=== PATIENT | female | born 1950 | race Caucasian/White ===

== ENCOUNTER 2019-09-07 12:14 | Outpatient (CLI) | payer BC ==
[2019-09-07] MEDS ORDERED: SKIN PO (13:23)
[2019-09-07] MEDS ORDERED: [UNRECOGNIZED DRUG - OTHER] PO (13:23)
[2019-09-07] MEDS ORDERED: VITS1TAB2 PO (13:23)
[2019-09-07] MEDS ORDERED: multivitamin PO (13:23)
[2019-09-07] MEDS ORDERED: omega 3 PO (13:23)
[2019-09-07] MEDS ORDERED: tumeric PO (13:23)
[2019-09-07 13:25] LABS: BASOPHILS % (AUTO) 2 % (0-1); EOSINOPHILS # (AUTO) 0.08 x10^3/uL (0-0.4); EOSINOPHILS % (AUTO) 1 % (1-7); LYMPHOCYTES % (AUTO) 24 % (22-44); MD NO; MEAN CORPUSCULAR HEMOGLOBIN 30.9 pg (27.0-34.8); MEAN CORPUSCULAR HGB CONC 33.2 g/dL (32.4-35.8); MEAN CORPUSCULAR VOLUME 93.1 fL (80-100); MEAN PLATELET VOLUME 8.9 fL (7.4-10.4); MONOCYTES % (AUTO) 6 % (2-9); NEUTROPHILS # (AUTO) 4.18 x10^3/uL (1.8-6.8); NEUTROPHILS % (AUTO) 67 % (42-75); PLATELET COUNT 176 x10^3/uL (130-400); RED BLOOD COUNT 4.62 x10^6/uL (3.82-5.3); RED CELL DISTRIBUTION WIDTH 12.8 % (9.6-15.2)
[2019-09-07 13:38] LABS: ANION GAP 5 mmol/L (5-15); CALCIUM 9.1 mg/dL (8.5-10.1); CHLORIDE 111 mmol/L (98-107); CREATININE 0.59 mg/dL (0.55-1.02)
== END 2019-09-07 23:59 | disposition home or self-care (01) ==
LOC: STAR 12:14
PROVIDERS: ATTEND Obstetrics & Gynecology
DX: Z01.818 Encounter for other preprocedural examination (principal); N81.2 Incomplete uterovaginal prolapse; Z88.0 Allergy status to penicillin
CPT/HCPCS: 36415; 71046; 80048; 84702; 85025; 93005

== ENCOUNTER 2019-09-22 09:42 | Day surgery (SDC) | payer BC ==
[~2019-09-22] VITALS: Ht 162.6 cm; Wt 50.0 kg
[~2019-09-22 09:42] MED LIST: SKIN PO; VITS1TAB2 PO; [UNRECOGNIZED DRUG - OTHER] PO; multivitamin PO; omega 3 PO; tumeric PO
[2019-09-22 10:39] VITALS: BP 157/88
[2019-09-22] MEDS ORDERED: LACTATED RINGERS 1,000 ML IV ONE (10:42)
[2019-09-22] MEDS ORDERED: BUPIVACAINE/PF-EPI 0.25% 1:200K ONE (10:52)
[2019-09-22] MEDS ORDERED: BUPIVACAINE/PF 0.5% ONE (10:52)
[2019-09-22] MEDS ORDERED: EPINEPHRINE 1 MG/ML, 1ML ONE (10:52)
[2019-09-22] MEDS ORDERED: FLUORESCEIN SODIUM 500 MG/5 ML ONE (11:00)
[2019-09-22] MEDS ORDERED: ACETAMINOPHEN 500 MG TABLET PO STA (11:08)
[2019-09-22] MEDS ORDERED: DIAZEPAM 5 MG TABLET PO STA (11:08)
[2019-09-22] MEDS ORDERED: SCOPOLAMINE PATCH, 1.5MG PATCH.TD72 TD STA (11:13)
[2019-09-22] MEDS ORDERED: SCOPOLAMINE PATCH, 1.5MG PATCH.TD72 TD ONE (11:14)
[2019-09-22] MEDS ORDERED: FENTANYL PF 250 MCG/5ML ONE (11:33)
[2019-09-22] MEDS ORDERED: MIDAZOLAM 1 MG/ML, 2ML ONE (11:34)
[2019-09-22] MEDS ORDERED: LIDOCAINE-MPF 2% ,5ML ONE (11:59)
[2019-09-22] MEDS ORDERED: HYDROmorphone 2 MG/ML, 1ML IVPush PRN (12:30)
[2019-09-22] MEDS ORDERED: LORazepam 2 MG/ML, 1ML IVPush PRN (12:30)
[2019-09-22] MEDS ORDERED: PROMETHAZINE 25 MG SUPP PR PRN (12:30)
[2019-09-22] MEDS ORDERED: ONDANSETRON 2MG/ML, 2ML IV PRN (12:30)
[2019-09-22] MEDS ORDERED: ONDANSETRON ODT 8 MG PO PRN (12:30)
[2019-09-22] MEDS ORDERED: PROMETHAZINE 25 MG/ML, 1ML IV PRN (12:30)
[2019-09-22] MEDS ORDERED: OXYcodone 5 MG/5 ML ORAL.SOL UDC PO PRN (12:30)
[2019-09-22] MEDS ORDERED: FENTANYL PF 100 MCG/2ML IV PRN (12:30)
[2019-09-22] MEDS ORDERED: SUGAMMADEX 200 MG/2 ML IVPush ONE (12:53)
[2019-09-22] MEDS ORDERED: DEXAMETHASONE 4 MG/ML, 1ML ONE (12:53)
[2019-09-22] MEDS ORDERED: PROPOFOL 10 MG/ML, 20ML ONE (12:53)
[2019-09-22] MEDS ORDERED: GLYCOPYRROLATE 0.2MG/1ML, 5ML ONE (12:53)
[2019-09-22] MEDS ORDERED: CEFAZOLIN 1,000 MG ONE (12:53)
[2019-09-22] MEDS ORDERED: ONDANSETRON 2MG/ML, 2ML ONE (12:53)
[2019-09-22] MEDS ORDERED: SUCCINYLCHOLINE 20 MG/ML, 10ML ONE (12:53)
[2019-09-22] MEDS ORDERED: ROCURONIUM 10MG/ML,5ML ONE (12:53)
[2019-09-22] MEDS ORDERED: NEOSTIGMINE 1 MG/ML, 10ML ONE (12:53)
== END 2019-09-22 17:25 | disposition home or self-care (01) ==
LOC: OUT 09:42
PROVIDERS: ATTEND Obstetrics & Gynecology
DX: N81.2 Incomplete uterovaginal prolapse (principal); C54.1 Malignant neoplasm of endometrium; Z88.0 Allergy status to penicillin; Z98.890 Other specified postprocedural states
CPT/HCPCS: 57260; 58262; 88307; J0690; J1100; J2250; J2405; J2704; J3010; J7120; J0171; J2710; J0330

== ENCOUNTER 2019-10-26 09:32 | Outpatient (CLI) | payer BC ==
[2019-10-26 09:55] LABS: BASOPHILS # (AUTO) 0.03 x10^3/uL (0-0.1); BASOPHILS % (AUTO) 1 % (0-1); EOSINOPHILS # (AUTO) 0.07 x10^3/uL (0-0.4); EOSINOPHILS % (AUTO) 1 % (1-7); LYMPHOCYTES # (AUTO) 1.24 x10^3/uL (1-3.4); LYMPHOCYTES % (AUTO) 23 % (22-44); MD NO; MEAN CORPUSCULAR HEMOGLOBIN 31.1 pg (27.0-34.8); MEAN CORPUSCULAR HGB CONC 33.7 g/dL (32.4-35.8); MEAN CORPUSCULAR VOLUME 92.3 fL (80-100); MEAN PLATELET VOLUME 9.1 fL (7.4-10.4); MONOCYTES # (AUTO) 0.28 x10^3/uL (0.2-0.8); MONOCYTES % (AUTO) 5 % (2-9); NEUTROPHILS # (AUTO) 3.75 x10^3/uL (1.8-6.8); NEUTROPHILS % (AUTO) 70 % (42-75); PLATELET COUNT 175 x10^3/uL (130-400); RED BLOOD COUNT 4.67 x10^6/uL (3.82-5.3); RED CELL DISTRIBUTION WIDTH 13.2 % (9.6-15.2)
[2019-10-26 09:58] LABS: ALBUMIN 4.1 g/dL (3.4-5.0); ANION GAP 8 mmol/L (5-15); CALCIUM 9.2 mg/dL (8.5-10.1); CHLORIDE 109 mmol/L (98-107)
[2019-10-26 10:01] LABS: ALANINE AMINOTRANSFERASE 28 U/L (12-78); ALKALINE PHOSPHATASE 96 U/L (45-117); BILIRUBIN,TOTAL 0.6 mg/dL (0.2-1.0); CREATININE 0.66 mg/dL (0.55-1.02); TOTAL PROTEIN 7.6 g/dL (6.4-8.2)
== END 2019-10-26 23:59 | disposition home or self-care (01) ==
LOC: LAB 09:32
PROVIDERS: ATTEND Obstetrics & Gynecology
DX: C54.1 Malignant neoplasm of endometrium (principal); N81.10 Cystocele, unspecified; N81.6 Rectocele
CPT/HCPCS: 36415; 80053; 85025; 86304

== ENCOUNTER 2019-11-02 10:13 | Outpatient (CLI) | payer BC ==
[2019-11-02] MEDS ORDERED: OMNIPAQUE 350 MG/ML, 100ML BOTTLE ONE (12:27)
== END 2019-11-02 23:59 | disposition home or self-care (01) ==
LOC: CFH 10:13
PROVIDERS: ATTEND Obstetrics & Gynecology
DX: C54.1 Malignant neoplasm of endometrium (principal); N81.10 Cystocele, unspecified; N81.6 Rectocele; J84.10 Pulmonary fibrosis, unspecified
CPT/HCPCS: 71260; 74177; Q9967

== ENCOUNTER 2019-12-15 10:54 | Outpatient (CLI) | payer BC ==
[2019-12-15 12:05] LABS: INTERNATIONAL NORMALIZED RATIO 0.96 (0.93-1.1); PROTHROMBIN TIME 10.2 Seconds (9.6-11.5)
[2019-12-15 12:07] LABS: BASOPHILS # (AUTO) 0.04 x10^3/uL (0-0.1); BASOPHILS % (AUTO) 1 % (0-1); EOSINOPHILS # (AUTO) 0.07 x10^3/uL (0-0.4); EOSINOPHILS % (AUTO) 1 % (1-7); LYMPHOCYTES # (AUTO) 1.72 x10^3/uL (1-3.4); LYMPHOCYTES % (AUTO) 30 % (22-44); MD NO; MEAN CORPUSCULAR HGB CONC 34.1 g/dL (32.4-35.8); MEAN CORPUSCULAR VOLUME 93.9 fL (80-100); MEAN PLATELET VOLUME 9.2 fL (7.4-10.4); MONOCYTES # (AUTO) 0.35 x10^3/uL (0.2-0.8); MONOCYTES % (AUTO) 6 % (2-9); NEUTROPHILS # (AUTO) 3.62 x10^3/uL (1.8-6.8); NEUTROPHILS % (AUTO) 62 % (42-75); PLATELET COUNT 171 x10^3/uL (130-400); RED BLOOD COUNT 4.67 x10^6/uL (3.82-5.3); RED CELL DISTRIBUTION WIDTH 13.6 % (9.6-15.2)
[2019-12-15 12:16] LABS: ALBUMIN 3.9 g/dL (3.4-5.0); ANION GAP 7 mmol/L (5-15); CHLORIDE 111 mmol/L (98-107)
[2019-12-15 12:20] LABS: ALANINE AMINOTRANSFERASE 37 U/L (12-78); ALKALINE PHOSPHATASE 98 U/L (45-117); BILIRUBIN,TOTAL 0.4 mg/dL (0.2-1.0); CREATININE 0.69 mg/dL (0.55-1.02); TOTAL PROTEIN 7.1 g/dL (6.4-8.2)
== END 2019-12-15 23:59 | disposition home or self-care (01) ==
LOC: STAR 10:54
PROVIDERS: ATTEND Obstetrics & Gynecology
DX: Z01.818 Encounter for other preprocedural examination (principal); C54.1 Malignant neoplasm of endometrium; N81.10 Cystocele, unspecified; N81.6 Rectocele
CPT/HCPCS: 36415; 80053; 85025; 85610; 85730; 86304; U0001

== ENCOUNTER 2019-12-20 05:30 | Day surgery (SDC) | payer BC ==
[~2019-12-20] VITALS: Ht 162.6 cm; Wt 49.8 kg
[2019-12-20] MEDS ORDERED: LACTATED RINGERS 1,000 ML IV SCH (06:40)
[2019-12-20 06:44] VITALS: BP 166/90
[2019-12-20] MEDS ORDERED: GLYCOPYRROLATE 0.2MG/1ML, 5ML ONE (06:44)
[2019-12-20] MEDS ORDERED: ONDANSETRON 2MG/ML, 2ML ONE ×2 (06:44→17:52)
[2019-12-20] MEDS ORDERED: MIDAZOLAM 1 MG/ML, 2ML ONE (06:44)
[2019-12-20] MEDS ORDERED: SUCCINYLCHOLINE 20 MG/ML, 10ML ONE (06:44)
[2019-12-20] MEDS ORDERED: FENTANYL PF 100 MCG/2ML ONE ×3 (06:44→13:01)
[2019-12-20] MEDS ORDERED: NEOSTIGMINE 1 MG/ML, 10ML ONE (06:44)
[2019-12-20] MEDS ORDERED: DEXAMETHASONE 4 MG/ML, 1ML ONE (06:44)
[2019-12-20] MEDS ORDERED: CEFAZOLIN 1,000 MG ONE (06:44)
[2019-12-20] MEDS ORDERED: ROCURONIUM 10MG/ML,5ML ONE (06:44)
[2019-12-20] MEDS ORDERED: PROPOFOL 10 MG/ML, 20ML ONE (06:44)
[2019-12-20] MEDS ORDERED: BUPIVACAINE/PF-EPI 0.25% 1:200K ONE ×2 (06:50→11:36)
[2019-12-20] MEDS ORDERED: INDOCYANINE GREEN 25 MG VIAL ONE (06:50)
[2019-12-20] MEDS ORDERED: HEPARIN 1,000 UNITS/ML, 10ML ONE (06:50)
[2019-12-20] MEDS ORDERED: SCOPOLAMINE 1MG PATCH TD SCH (07:00)
[2019-12-20] MEDS ORDERED: CHLORHEXIDINE 15 ML UDC MM ONE (07:00)
[2019-12-20] MEDS ORDERED: LIDOCAINE-MPF 1%, 2ML INFIL ONE (07:00)
[2019-12-20] MEDS ORDERED: CEFOTETAN PMX 2GM/50ML 50 ML IV ONE (07:00)
[2019-12-20] MEDS ORDERED: CEFOTETAN PMX 2GM/50ML 50 ML ONE (07:10)
[2019-12-20] MEDS ORDERED: SCOPOLAMINE 1MG PATCH TD ONE (07:11)
[2019-12-20] MEDS ORDERED: EPHEDRINE 50 MG/ML, 1ML ONE (07:38)
[2019-12-20] MEDS ORDERED: METOPROLOL 1 MG/ML, 5ML ONE (07:38)
[2019-12-20] MEDS ORDERED: CEFOTETAN 2 GM ONE (07:38)
[2019-12-20] MEDS ORDERED: SUGAMMADEX 200 MG/2 ML IVPush ONE (07:38)
[2019-12-20] MEDS ORDERED: OXYcodone 5 MG/5 ML ORAL.SOL UDC PO PRN (08:30)
[2019-12-20] MEDS ORDERED: MORPHINE SULFATE 4 MG/ML, 1ML IVPush PRN (08:30)
[2019-12-20] MEDS ORDERED: PROMETHAZINE 25 MG/ML, 1ML IV PRN (08:30)
[2019-12-20] MEDS ORDERED: ACETAMINOPHEN 325 MG TABLET PO PRN (08:30)
[2019-12-20] MEDS ORDERED: MEPERIDINE/PF 25MG/ML,1ML IVPush PRN (08:30)
[2019-12-20] MEDS: FENTANYL PF 100 MCG/2ML IV PRN ×2 (13:03→13:16)
[2019-12-20] MEDS ORDERED: ONDANSETRON 2MG/ML, 2ML IVPush PRN (18:00)
[2019-12-20] MEDS ORDERED: OXYcodone 5 MG/5 ML ORAL.SOL UDC ONE (18:03)
[2019-12-20] MEDS ORDERED: ACETAMINOPHEN 325 MG TABLET ONE (18:03)
== END 2019-12-20 19:20 | disposition home or self-care (01) ==
LOC: OUT 05:30
PROVIDERS: ATTEND Obstetrics & Gynecology
DX: C54.1 Malignant neoplasm of endometrium (principal); N99.71 Accidental puncture and laceration of a genitourinary system organ or structure during a genitourinary system procedure; N83.292 Other ovarian cyst, left side; N73.6 Female pelvic peritoneal adhesions (postinfective); Z79.899 Other long term (current) drug therapy; Z88.0 Allergy status to penicillin; Z90.710 Acquired absence of both cervix and uterus; Z90.79 Acquired absence of other genital organ(s); Z98.890 Other specified postprocedural states; Z82.49 Family history of ischemic heart disease and other diseases of the circulatory system; Z80.1 Family history of malignant neoplasm of trachea, bronchus and lung; Z83.511 Family history of glaucoma; Y83.8 Other surgical procedures as the cause of abnormal reaction of the patient, or of later complication, without mention of misadventure at the time of the procedure
CPT/HCPCS: 36415; 38572; 58661; 74018; 86850; 86870; 86900; 86902; 86922; 88112; 88305; 88307; 88341; 88342; J0330; J1100; J1644; J2250; J2405; J2704; J2710; J3010; J3490; J7120; S2900; 86923; J0690

== ENCOUNTER → 2020-01-18 | Outpatient (CLI) | payer BC ==
[2020-01-18 11:10] LABS: BASOPHILS # (AUTO) 0.03 x10^3/uL (0-0.1); BASOPHILS % (AUTO) 1 % (0-1); EOSINOPHILS # (AUTO) 0.14 x10^3/uL (0-0.4); EOSINOPHILS % (AUTO) 2 % (1-7); LYMPHOCYTES # (AUTO) 1.26 x10^3/uL (1-3.4); LYMPHOCYTES % (AUTO) 20 % (22-44); MD NO; MEAN CORPUSCULAR HEMOGLOBIN 31.4 pg (27.0-34.8); MEAN CORPUSCULAR HGB CONC 33.2 g/dL (32.4-35.8); MEAN CORPUSCULAR VOLUME 94.7 fL (80-100); MONOCYTES # (AUTO) 0.48 x10^3/uL (0.2-0.8); MONOCYTES % (AUTO) 8 % (2-9); NEUTROPHILS % (AUTO) 69 % (42-75); PLATELET COUNT 191 x10^3/uL (130-400); RED BLOOD COUNT 4.48 x10^6/uL (3.82-5.3); RED CELL DISTRIBUTION WIDTH 13.7 % (9.6-15.2)
[2020-01-18 11:11] LABS: ALANINE AMINOTRANSFERASE 19 U/L (12-78); ALBUMIN 3.8 g/dL (3.4-5.0); ANION GAP 8 mmol/L (5-15); CHLORIDE 108 mmol/L (98-107); CREATININE 0.66 mg/dL (0.55-1.02)
[2020-01-18 11:13] LABS: ALKALINE PHOSPHATASE 83 U/L (45-117); BILIRUBIN,TOTAL 0.7 mg/dL (0.2-1.0); TOTAL PROTEIN 7.5 g/dL (6.4-8.2)
== END | disposition home or self-care (01) ==
LOC: LAB 10:39
PROVIDERS: ATTEND Obstetrics & Gynecology
DX: C54.1 Malignant neoplasm of endometrium (principal); N81.10 Cystocele, unspecified; N81.6 Rectocele; E61.2 Magnesium deficiency
CPT/HCPCS: 36415; 80053; 83735; 85025; 86304

== ENCOUNTER → 2020-02-02 | Outpatient (CLI) | payer BC ==
[2020-02-02 11:55] LABS: MEAN CORPUSCULAR HEMOGLOBIN 31.5 pg (27.0-34.8); MEAN CORPUSCULAR HGB CONC 33.5 g/dL (32.4-35.8); MEAN CORPUSCULAR VOLUME 94.1 fL (80-100); MEAN PLATELET VOLUME 8.8 fL (7.4-10.4); PLATELET COUNT 164 x10^3/uL (130-400); RED CELL DISTRIBUTION WIDTH 12.4 % (9.6-15.2)
[2020-02-02 12:37] LABS: MD YES
[2020-02-02 12:41] LABS: <PLATELET ESTIMATE> ADEQUATE; <PLT MORPHOLOGY> NORMAL PLT MORPH; <RBC MORPHOLOGY> NORMAL; BAND#(MANUAL) 1.03 x10^3/uL; BANDS%(MANUAL) 9 % (0-7); EOS#(MANUAL) 0.23 x10^3/uL (0.0-0.4); EOS% (MANUAL) 2 % (1-7); LYMPH#(MANUAL) 2.74 x10^3/uL (1-3.4); LYMPHS% (MANUAL) 24 % (22-44); METAMYELOCYTES# (MANUAL) 0.68 x10^3/uL (0-0); METAMYELOCYTES% (MANUAL) 6 % (0-1); MONOS#(MANUAL) 1.25 x10^3/uL (0.3-2.7); MONOS% (MANUAL) 11 % (2-9); MYELOCYTES# (MANUAL) 0.34 x10^3/uL (0-0); MYELOCYTES% (MANUAL) 3 % (0-0); SEG#(MANUAL) 5.13 x10^3/uL (1.8-6.8); SEGS% (MANUAL) 45 % (42-75); TOXIC GRAN 1+
== END | disposition home or self-care (01) ==
LOC: LAB 11:42
PROVIDERS: ATTEND Obstetrics & Gynecology
DX: Z51.11 Encounter for antineoplastic chemotherapy (principal); C54.1 Malignant neoplasm of endometrium; N81.10 Cystocele, unspecified; N81.6 Rectocele; R33.9 Retention of urine, unspecified; E61.2 Magnesium deficiency; D70.1 Agranulocytosis secondary to cancer chemotherapy
CPT/HCPCS: 36415; 85025

== ENCOUNTER → 2020-02-09 | Outpatient (CLI) | payer BC ==
[2020-02-09 11:27] LABS: BASOPHILS # (AUTO) 0.04 x10^3/uL (0-0.1); BASOPHILS % (AUTO) 1 % (0-1); EOSINOPHILS # (AUTO) 0.09 x10^3/uL (0-0.4); EOSINOPHILS % (AUTO) 1 % (1-7); LYMPHOCYTES # (AUTO) 1.48 x10^3/uL (1-3.4); LYMPHOCYTES % (AUTO) 15 % (22-44); MD NO; MEAN CORPUSCULAR HEMOGLOBIN 31.6 pg (27.0-34.8); MEAN CORPUSCULAR HGB CONC 33.8 g/dL (32.4-35.8); MEAN CORPUSCULAR VOLUME 93.6 fL (80-100); MEAN PLATELET VOLUME 8.6 fL (7.4-10.4); MONOCYTES # (AUTO) 0.28 x10^3/uL (0.2-0.8); MONOCYTES % (AUTO) 3 % (2-9); NEUTROPHILS # (AUTO) 7.69 x10^3/uL (1.8-6.8); NEUTROPHILS % (AUTO) 80 % (42-75); PLATELET COUNT 126 x10^3/uL (130-400); RED BLOOD COUNT 4.02 x10^6/uL (3.82-5.3); RED CELL DISTRIBUTION WIDTH 12.9 % (9.6-15.2)
== END | disposition home or self-care (01) ==
LOC: LAB 11:04
PROVIDERS: ATTEND Obstetrics & Gynecology
DX: Z51.11 Encounter for antineoplastic chemotherapy (principal); C54.1 Malignant neoplasm of endometrium; D70.1 Agranulocytosis secondary to cancer chemotherapy; N81.10 Cystocele, unspecified; N81.6 Rectocele; R33.9 Retention of urine, unspecified; E61.2 Magnesium deficiency
CPT/HCPCS: 36415; 85025

== ENCOUNTER → 2020-02-15 | Outpatient (CLI) | payer BC ==
[2020-02-15 09:58] LABS: ALANINE AMINOTRANSFERASE 31 U/L (12-78); ALBUMIN 3.5 g/dL (3.4-5.0); ANION GAP 7 mmol/L (5-15); CALCIUM 8.5 mg/dL (8.5-10.1); CHLORIDE 110 mmol/L (98-107)
[2020-02-15 10:00] LABS: ALKALINE PHOSPHATASE 95 U/L (45-117); BILIRUBIN,TOTAL 0.4 mg/dL (0.2-1.0); TOTAL PROTEIN 6.9 g/dL (6.4-8.2)
[2020-02-15 10:02] LABS: BASOPHILS # (AUTO) 0.01 x10^3/uL (0-0.1); BASOPHILS % (AUTO) 0 % (0-1); EOSINOPHILS # (AUTO) 0.01 x10^3/uL (0-0.4); EOSINOPHILS % (AUTO) 0 % (1-7); LYMPHOCYTES % (AUTO) 16 % (22-44); MD NO; MEAN CORPUSCULAR HEMOGLOBIN 31.2 pg (27.0-34.8); MEAN CORPUSCULAR VOLUME 94.8 fL (80-100); MEAN PLATELET VOLUME 7.9 fL (7.4-10.4); MONOCYTES # (AUTO) 0.34 x10^3/uL (0.2-0.8); MONOCYTES % (AUTO) 7 % (2-9); NEUTROPHILS # (AUTO) 3.97 x10^3/uL (1.8-6.8); NEUTROPHILS % (AUTO) 77 % (42-75); PLATELET COUNT 191 x10^3/uL (130-400); RED BLOOD COUNT 4.03 x10^6/uL (3.82-5.3)
== END | disposition home or self-care (01) ==
LOC: LAB 09:32
PROVIDERS: ATTEND Obstetrics & Gynecology
DX: Z51.11 Encounter for antineoplastic chemotherapy (principal); C54.1 Malignant neoplasm of endometrium; N81.10 Cystocele, unspecified; N81.6 Rectocele; R33.9 Retention of urine, unspecified; E61.2 Magnesium deficiency; D70.1 Agranulocytosis secondary to cancer chemotherapy
CPT/HCPCS: 36415; 80053; 83735; 85025; 86304

== ENCOUNTER → 2020-03-06 | Outpatient (CLI) | payer BC ==
[2020-03-06 12:36] LABS: ALANINE AMINOTRANSFERASE 37 U/L (12-78); ALBUMIN 3.7 g/dL (3.4-5.0); ANION GAP 5 mmol/L (5-15); CALCIUM 8.9 mg/dL (8.5-10.1); CHLORIDE 110 mmol/L (98-107); CREATININE 0.53 mg/dL (0.55-1.02)
[2020-03-06 12:38] LABS: ALKALINE PHOSPHATASE 97 U/L (45-117); BILIRUBIN,TOTAL 0.5 mg/dL (0.2-1.0); TOTAL PROTEIN 6.9 g/dL (6.4-8.2)
[2020-03-06 12:54] LABS: BASOPHILS # (AUTO) 0.03 x10^3/uL (0-0.1); BASOPHILS % (AUTO) 0 % (0-1); EOSINOPHILS # (AUTO) 0.01 x10^3/uL (0-0.4); EOSINOPHILS % (AUTO) 0 % (1-7); LYMPHOCYTES # (AUTO) 1.09 x10^3/uL (1-3.4); LYMPHOCYTES % (AUTO) 18 % (22-44); MD NO; MEAN CORPUSCULAR HGB CONC 33.2 g/dL (32.4-35.8); MEAN CORPUSCULAR VOLUME 96.3 fL (80-100); MEAN PLATELET VOLUME 8.5 fL (7.4-10.4); MONOCYTES # (AUTO) 0.33 x10^3/uL (0.2-0.8); MONOCYTES % (AUTO) 5 % (2-9); NEUTROPHILS # (AUTO) 4.77 x10^3/uL (1.8-6.8); NEUTROPHILS % (AUTO) 77 % (42-75); PLATELET COUNT 231 x10^3/uL (130-400); RED BLOOD COUNT 3.64 x10^6/uL (3.82-5.3); RED CELL DISTRIBUTION WIDTH 15.1 % (9.6-15.2)
== END | disposition home or self-care (01) ==
LOC: LAB 11:59
PROVIDERS: ATTEND Obstetrics & Gynecology
DX: Z51.11 Encounter for antineoplastic chemotherapy (principal); C54.1 Malignant neoplasm of endometrium; N81.10 Cystocele, unspecified; N81.6 Rectocele; R33.9 Retention of urine, unspecified; E61.2 Magnesium deficiency; D70.1 Agranulocytosis secondary to cancer chemotherapy
CPT/HCPCS: 36415; 80053; 83735; 85025; 86304

== ENCOUNTER → 2020-03-15 | Outpatient (CLI) | payer BC ==
[2020-03-15 10:45] LABS: MEAN CORPUSCULAR HEMOGLOBIN 32.5 pg (27.0-34.8); MEAN CORPUSCULAR HGB CONC 33.5 g/dL (32.4-35.8); MEAN CORPUSCULAR VOLUME 97.1 fL (80-100); MEAN PLATELET VOLUME 8.4 fL (7.4-10.4); PLATELET COUNT 184 x10^3/uL (130-400); RED BLOOD COUNT 3.43 x10^6/uL (3.82-5.3); RED CELL DISTRIBUTION WIDTH 15.4 % (9.6-15.2)
[2020-03-15 11:41] LABS: MD YES
[2020-03-15 11:43] LABS: ANISOCYTOSIS 1+; BAND#(MANUAL) 2.44 x10^3/uL; BANDS%(MANUAL) 13 % (0-7); EOS#(MANUAL) 0.19 x10^3/uL (0.0-0.4); EOS% (MANUAL) 1 % (1-7); LYMPHS% (MANUAL) 8 % (22-44); METAMYELOCYTES# (MANUAL) 0.94 x10^3/uL (0-0); METAMYELOCYTES% (MANUAL) 5 % (0-1); MONOS#(MANUAL) 1.13 x10^3/uL (0.3-2.7); MONOS% (MANUAL) 6 % (2-9); MYELOCYTES# (MANUAL) 0.94 x10^3/uL (0-0); MYELOCYTES% (MANUAL) 5 % (0-0); SEG#(MANUAL) 11.66 x10^3/uL (1.8-6.8); SEGS% (MANUAL) 62 % (42-75)
[2020-03-15 11:44] LABS: <PLATELET ESTIMATE> ADEQUATE; <PLT MORPHOLOGY> NORMAL PLT MORPH
== END | disposition home or self-care (01) ==
LOC: LAB 10:28
PROVIDERS: ATTEND Obstetrics & Gynecology
DX: Z51.11 Encounter for antineoplastic chemotherapy (principal); C54.1 Malignant neoplasm of endometrium; D70.1 Agranulocytosis secondary to cancer chemotherapy; N81.10 Cystocele, unspecified; N81.6 Rectocele; R33.9 Retention of urine, unspecified; E61.2 Magnesium deficiency
CPT/HCPCS: 36415; 85025

== ENCOUNTER → 2020-03-22 | Outpatient (CLI) | payer BC ==
[2020-03-22 10:43] LABS: BASOPHILS # (AUTO) 0.02 x10^3/uL (0-0.1); BASOPHILS % (AUTO) 0 % (0-1); EOSINOPHILS # (AUTO) 0.01 x10^3/uL (0-0.4); EOSINOPHILS % (AUTO) 0 % (1-7); LYMPHOCYTES # (AUTO) 1.38 x10^3/uL (1-3.4); LYMPHOCYTES % (AUTO) 14 % (22-44); MD NO; MEAN CORPUSCULAR HEMOGLOBIN 31.7 pg (27.0-34.8); MEAN CORPUSCULAR HGB CONC 32.5 g/dL (32.4-35.8); MEAN CORPUSCULAR VOLUME 97.5 fL (80-100); MEAN PLATELET VOLUME 8.4 fL (7.4-10.4); MONOCYTES # (AUTO) 0.42 x10^3/uL (0.2-0.8); MONOCYTES % (AUTO) 4 % (2-9); NEUTROPHILS # (AUTO) 8.36 x10^3/uL (1.8-6.8); NEUTROPHILS % (AUTO) 82 % (42-75); PLATELET COUNT 115 x10^3/uL (130-400); RED BLOOD COUNT 3.77 x10^6/uL (3.82-5.3); RED CELL DISTRIBUTION WIDTH 15.8 % (9.6-15.2)
== END | disposition home or self-care (01) ==
LOC: LAB 10:32
PROVIDERS: ATTEND Obstetrics & Gynecology
DX: Z51.11 Encounter for antineoplastic chemotherapy (principal); C54.1 Malignant neoplasm of endometrium; N81.10 Cystocele, unspecified; N81.6 Rectocele; R33.9 Retention of urine, unspecified; E61.2 Magnesium deficiency; D70.1 Agranulocytosis secondary to cancer chemotherapy
CPT/HCPCS: 36415; 85025

== ENCOUNTER → 2020-05-29 | Outpatient (CLI) | payer BC ==
[~2020-05-29] MED LIST changes: +OMNIPAQUE 350 MG/ML, 100ML BOTTLE ONE
== END | disposition home or self-care (01) ==
LOC: CFH 11:40
PROVIDERS: ATTEND Obstetrics & Gynecology
DX: Z51.11 Encounter for antineoplastic chemotherapy (principal); C54.1 Malignant neoplasm of endometrium; N81.10 Cystocele, unspecified; N81.6 Rectocele; R33.9 Retention of urine, unspecified; E61.2 Magnesium deficiency; D70.1 Agranulocytosis secondary to cancer chemotherapy
CPT/HCPCS: 71260; 74177; Q9967

== ENCOUNTER 2020-06-21 07:36 | Outpatient (CLI) | payer BC ==
[~2020-06-21 07:36] MED LIST changes: -OMNIPAQUE 350 MG/ML, 100ML BOTTLE ONE
== END 2020-06-21 23:59 | disposition home or self-care (01) ==
LOC: ROC 07:36
PROVIDERS: ATTEND Radiology Radiation Oncology
DX: C54.1 Malignant neoplasm of endometrium (principal); D61.818 Other pancytopenia
CPT/HCPCS: 99214; G0463